=== PATIENT | female | born 1940 | race African-American/Black ===

== ENCOUNTER 2019-10-04 18:07 | Emergency (ER) | payer OTHER ==
[~2019-10-04] VITALS: Ht 157.5 cm; Wt 79.4 kg
[2019-10-04] MEDS ORDERED: METFORMIN HCL500 M3 PO (19:09)
[2019-10-04] MEDS ORDERED: LEVOXYL75 MCG PO (19:10)
[2019-10-04 20:12] LABS: ABSOLUTE NEUTROPHILS 8.7 thou/uL (1.4-8.2); BASOPHILS 0.5 % (0.0-2.0); EOSINOPHILS 0.1 % (0.0-3.0); HEMATOCRIT 33.2 % (37.0-47.0); HEMOGLOBIN 10.7 gm/dL (12.0-15.0); LYMPHOCYTES 17.7 % (24.0-44.0); MCH 29.7 pg (26.0-34.0); MCHC 32.3 g/dL (28.0-37.0); MONOCYTES 5.7 % (1.0-8.0); PLATELET COUNT 365 thou/uL (150-400); WBC 11.5 thou/uL (4.0-11.0)
[2019-10-04 20:16] LABS: ANION GAP 11 mmol/L (7-16); BUN 29 mg/dL (7-18); CALCIUM 10.9 mg/dL (8.5-10.1); CHLORIDE 102 mmol/L (98-107); CO2 25 mmol/L (21-32); CREATININE 2.1 mg/dL (0.6-1.0); GLUCOSE 144 mg/dL (74-106); POTASSIUM 4.5 mmol/L (3.5-5.1); SODIUM 138 mmol/L (136-145)
[2019-10-04 20:22] LABS: ALBUMIN 3.9 g/dL (3.4-5.0); DIRECT BILIRUBIN < 0.1 mg/dL (<0.1-0.2); LIPASE 423 U/L (73-393); SGOT 22 U/L (15-37); SGPT 18 U/L (30-65); TOTAL BILIRUBIN 0.4 mg/dL (<0.1-1.0); TOTAL PROTEIN 8.9 g/dL (6.4-8.2)
[2019-10-04] MEDS ORDERED: MECLIZINE HCL25 M1 PO (21:11)
[2019-10-04 21:24] VITALS: BP 150/67
--- NOTE | 2019-10-05 13:30 | EKG ---
[place] [address] [facility] [place] [place] [address] ELECTROCARDIOGRAM REPORT Name: EDENILSON JACKSON Room #: DEP [facility]#: [id number] Admission: 10/04/19 Attend Phys: Discharge: 10/04/19 Date of : 44 Report #: [id number] THIS REPORT FOR: //name// [facility] ED Test Date: 2019-10-04 Test Time: 20:33:02 Pat Name: EDENILSON VARGAS Department: Room: Gender: F Disaster Director: [place] : 1940 Requested By: Leeann Owens Order Number: [id number] MD: Isael Mosqueda Measurements Intervals [place] Rate: 59 P: 63 RI: 129 QRS: 14 QRSD: 79 T: 100 QT: 417 QTc: 414 Interpretive Statements Sinus bradycardia Consider left ventricular hypertrophy Compared to ECG 05/10/2018 12:25:52 No significant change was found Electronically Signed On 10-05-2019 13:30:13 LEAD APPLIER by Isael Mosqueda [email or web address] <ELECTRONICALLY SIGNED> By: Isael Mosqueda MD, [facility] 10/05/19 1330 32 32 Isael Mosqueda MD, FACC /EPI
== END 2019-10-04 21:43 | disposition home or self-care (01) ==
LOC: ER 18:07
PROVIDERS: Emergency Medicine
DX: R11.2 Nausea with vomiting, unspecified (principal); R42 Dizziness and giddiness; I10 Essential (primary) hypertension; E11.9 Type 2 diabetes mellitus without complications; Z88.8 Allergy status to other drugs, medicaments and biological substances